=== PATIENT | male | born 1950 | race Caucasian/White ===

== ENCOUNTER → 2025-07-02 10:34 | Outpatient (BNVA) | payer MEDICARE, OTHER, SELFPAY | PROVIDERS: Visit Provider Dermatology | DX: L21.8 Other seborrheic dermatitis (principal); L71.8 Other rosacea; L30.9 Dermatitis, unspecified; L57.0 Actinic keratosis; D48.5 Neoplasm of uncertain behavior of skin | CPT/HCPCS: 11102; 17004; 99204 ==

== ENCOUNTER → 2025-08-03 12:58 | Outpatient (BNVA) | payer MEDICARE, OTHER, SELFPAY | PROVIDERS: Visit Provider Dermatology | DX: C44.42 Squamous cell carcinoma of skin of scalp and neck (principal); L57.0 Actinic keratosis | CPT/HCPCS: 17000; 99213 ==